=== PATIENT | male | born 1960 | race Caucasian/White ===

== ENCOUNTER 2016-06-13 12:00 | Inpatient (IN) | payer BC ==
[~2016-06-13] VITALS: Ht 174 cm; Wt 83.1 kg
[2016-06-14] MEDS ORDERED: VANCOMYCIN 1 GM in NS 250 ML IVPB SCH (06:00)
[2016-06-14] MEDS ORDERED: LACTATED RINGER'S 1,000 ML IV* SCH (06:00)
[2016-06-17 16:16] VITALS: BMI 28.5
[2016-06-20] VITALS (27 sets, daily range): BP systolic 96–122; BP diastolic 64–80; PULSE 56–101; RESP 5–19; Ht 174 cm; Wt 83.1 kg
[2016-06-20] MEDS ORDERED: ACETAMINOPHEN 1000 MG/100 ML IVPB ONE (07:00)
[2016-06-20] MEDS ORDERED: VANCOMYCIN 1 GM in NS 250 ML IVPB ONE (12:30)
[2016-06-20] MEDS ORDERED: LACTATED RINGER'S 1,000 ML IV* SCH (12:30)
--- NOTE | 2016-06-20 14:12 | HPN ---
Date/Time of Note Date/Time of Note DATE: 06/20/16 TIME: 14:11 Interval H&P Admission Note Pt. seen H&P reviewed: No system changes JAMISON CADENA PA-C Jun 20, 2016 14:12
[2016-06-20] MEDS ORDERED: HYDROmorphONE 1 MG/ML SYG IV PRN (14:30)
[2016-06-20] MEDS ORDERED: BISACODYL 10 MG SUPP PR PRN (14:30)
[2016-06-20] MEDS ORDERED: AL HYDROX/MG HYDROX/SIMETH 30 ML CUP PO PRN (14:30)
[2016-06-20] MEDS ORDERED: ONDANSETRON 4 MG INJ IV PRN ×2 (14:30→16:30)
[2016-06-20] MEDS ORDERED: HYDROmorphONE 0.2 MG/ML PCA IV SCH ×2 (14:30→23:45)
[2016-06-20] MEDS ORDERED: CYCLOBENZAPRINE 10 MG TAB PO PRN (14:30)
[2016-06-20] MEDS ORDERED: ACETAMINOPHEN 325 MG TAB PO PRN (14:30)
[2016-06-20] MEDS ORDERED: CEPASTAT LOZENGE MT PRN (14:30)
[2016-06-20] MEDS ORDERED: DIPHENHYDRAMINE 50 MG INJ IV PRN ×2 (14:30→16:30)
[2016-06-20] MEDS ORDERED: ZOLPIDEM 5 MG TAB PO PRN (14:30)
[2016-06-20] MEDS ORDERED: NALOXONE (0.4 MG/ML) INJ IV PRN (14:30)
[2016-06-20] MEDS ORDERED: PROPOFOL 100 ML ONE (14:35)
[2016-06-20] MEDS ORDERED: MIDAZOLAM 1 MG/ML 2 ML INJ ONE (14:35)
[2016-06-20] MEDS ORDERED: ROCURONIUM 50 MG INJ ONE (14:35)
[2016-06-20] MEDS ORDERED: SURGIFOAM POWDER 1 GM KIT ONE (14:45)
[2016-06-20] MEDS ORDERED: POLYMYXIN/BACITRACIN 1L IRRIG ONE (14:46)
[2016-06-20] MEDS ORDERED: CA CHLORIDE 10% 10 ML SYRINGE ONE (14:46)
[2016-06-20] MEDS ORDERED: BUPIVACAINE 0.25%/EPI (SDV) 30 ML INJ ONE (14:46)
[2016-06-20] MEDS ORDERED: THROMBIN 5000 UNIT VIAL ONE (14:46)
[2016-06-20] MEDS ORDERED: METOCLOPRAMIDE 10 MG INJ ONE (16:00)
[2016-06-20] MEDS ORDERED: DEXAMETHASONE 4 MG/ML 1 ML INJ ONE (16:00)
[2016-06-20] MEDS ORDERED: ONDANSETRON 4 MG INJ ONE (16:00)
[2016-06-20] MEDS ORDERED: EPHEDrine SULFATE 50 MG/5 ML SYG IV PRN (16:30)
[2016-06-20] MEDS ORDERED: HYDROmorphONE (0.2 MG/ML) 10ML SYG IV PRN ×2 (16:30)
[2016-06-20] MEDS ORDERED: METOCLOPRAMIDE 10 MG INJ IV PRN (16:30)
[2016-06-20] MEDS ORDERED: FENTAnyl 50 MCG/ML VIAL IV PRN ×3 (16:30)
[2016-06-20] MEDS ORDERED: MEPERIDINE 25 MG INJ IV PRN (16:30)
[2016-06-20] MEDS ORDERED: LABETALOL HCL 20MG INJ IV PRN (16:30)
[2016-06-20] MEDS ORDERED: morphine (1 MG/ML) 10ML SYRINGE IV PRN ×3 (16:30)
[2016-06-20] MEDS ORDERED: NEOSTIGMINE 3 MG/3 ML SYRINGE ONE (16:53)
[2016-06-20] MEDS ORDERED: GLYCOPYRROLATE 1 MG INJ ONE (16:53)
--- NOTE | 2016-06-20 17:32 | RADRPT ---
PROCEDURE: XR Lumbar Spine one view. CLINICAL INDICATION: Low back pain. Intraoperative. TECHNIQUE: Prone portable cross-table lateral. COMPARISON: No prior studies are available for comparison. FINDINGS: For the purposes of this report, the last apparent true disc level is considered to be L5-S1. Based on this, the posterior needle markers are present at upper L4 and mid S1. There has been prior pos terior fusion with pedicle screws at L5 and S1. IMPRESSION: 1. Intraoperative imaging as described above. RPTAT: QQ .Yang Loo MD, MD Date Time Electronically viewed and signed by .Yang Loo MD, on 06/20/2016 17:32 .R/
--- NOTE | 2016-06-20 17:33 | RADRPT ---
PROCEDURE: XR Lumbar Spine one view. CLINICAL INDICATION: Low back pain. Intraoperative. TECHNIQUE: Prone portable cross-table lateral. COMPARISON: 06/20/2016. FINDINGS: For the purposes of this report, the last apparent true disc level is considered to be L5-S1. Based on this, the posterior surgical instrument is at the L4-5 level. Pedicle screws are once again not ed at L5 and S1. IMPRESSION: 1. Intraoperative imaging as described above. RPTAT: QQ .Yang Loo MD, Date Time Electronically viewed and signed by .Yang Loo MD, on 06/20/2016 17:33 .R/
[2016-06-20] MEDS ORDERED: ACYC400T2 PO (17:39)
[2016-06-20] MEDS: HYDROmorphONE (0.2 MG/ML) 10ML SYG IV PRN ×3 (17:44→17:58)
--- NOTE | 2016-06-20 17:56 | OPR ---
DATE OF OPERATION: 06/20/2016 PREOPERATIVE DIAGNOSES: 1. 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 2. Previous L5-S1 decompression instrumented fusion x2. POSTOPERATIVE DIAGNOSES 1. 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 2. Previous L5-S1 decompression instrumented fusion x2. OPERATION PERFORMED: 1. Left L4-5 decompression with removal of extradural intraspinal cyst. 2. Use of operative microscope. 3. Lateral localizing film x2. 4. Intraoperative neuromonitoring (1.5 hours). PRIMARY SURGEON: Jose Carey MD MANAGER GROUP: My [employer] PA-C NEED FOR DRAW MACHINE OPERATOR: During this spinal surgical procedure, my sales and marketing assistant was used to retrac t and protect the spinal nerves and dural sac. My sales and marketing assistant also employed the suction catheters to evacuate blood from the surgical field to improve visualization of the neural structures. The judith tant was medically necessary to facilitate the completion of the surgery in a safe and expeditious vahe. [facility] [place] regulations, as well as hospital bylaws, preclude the use of non-license d health care personnel, such as operating room technicians, to perform these functions. FINDINGS: Neuromonitoring at the start of the case revealed left L4 amplitude down 40%, left L5 amp litude down 70%, left S1 amplitude down 50%, right L5 amplitude down 20%. At the end of the case, n erve signals returned to normal. The patient had a left-sided facet fracture from the previous surg eries. The patient had significant scar tissue and alteration of the field from the previous surger ies. ESTIMATED BLOOD LOSS: Less than 30 mL. DRAINS: None. SPECIMENS: Cyst was sent to Pathology. COMPLICATIONS OF PROCEDURES: None. ANESTHESIOLOGIST: Bradley Bowser MD TYPE OF ANESTHESIA: General. INDICATIONS FOR PROCEDURE: This is a 56-year-old gentleman with left lumbosacral radiculopathy in t he setting of stenosis and a cyst at L4-5. He had previously undergone L5-S1 decompression instrume nted fusion with removal of left-sided L5 and S1 screws. He failed nonoperative measures; therefore , I recommended proceeding with above-mentioned surgery. Preoperatively, we discussed the risks, be nefits, and alternatives. He understood and wished to proceed. DESCRIPTION OF PROCEDURE IN DETAIL: The patient was identified in the preoperative holding area, gi gudelia vancomycin antibiotics, taken to the operating room, where he was successfully placed under gene ral anesthesia. Neuromonitoring leads were placed, sequential compressive devices were applied. Ne uromonitoring was utilized during the procedure for 1.5 hours to include SSEP, MEP, and EMG. This w as performed by [email or web address]. Start time was 3:30 p.m., closure time was 5:00 p.m. The patient was placed in downward turned prone position over a Jimmy frame. All bony prominences were well p added. The back was then prepped and draped in usual sterile fashion. Spinal needles were placed a nd lateral localizing films obtained to confirm the correct levels. Once this was confirmed, I inje cted the paraspinal musculature with 0.25% Marcaine and epinephrine. I made an incision over the L4 -5 level utilizing a portion of the patient's previous incision. Incision was taken down to dorsal fascia, which was incised with Bovie cautery. Significant scar tissue was encountered from the prev ious surgery, altering the field and adding at least 30 minutes to the procedure. I was able to gissell ntify the left L4 lamina. Kerrison was placed under the L4 lamina and repeat lateral films obtained to confirm the correct levels. Once this was confirmed, microscope was brought in and a left-sided hemilaminotomy was performed. A portion of the patient's inferior L4 facet was fractured and remov ed. I used curettes to detach the cyst from the surrounding bone and did a laminotomy with a partia l medial facetectomy. Once this was done, I was able to identify the L5 nerve root. I then identif ied the cyst and I was able to peel the cyst off slowly off of the dura intact. Once this was remov ed, the patient nerve signals returned to normal. I cauterized any remnant cyst-like tissue. Once this was done, I irrigated the wound. Valsalva maneuver was performed and there was no leak of CSF. Anesthesiologist gillian peripheral blood was spun using the Sproutling device. I took the platelet-po or plasma and mixed this with thrombin and injected this over the dura for hemostatic purposes. I jadyn cowan removed the retractor and closed the deep fascia with #1 Vicryl stitch. I closed subcutaneous t issue with 2-0 Vicryl stitch. Microscope was taken off the field. A 4-0 Monocryl closure was then performed. Dermabond and sterile dressings were then applied. The patient was then awakened from a nesthesia and taken to recovery room in stable condition. Lap, sponge, and instrument counts were c orrect x2. There were no apparent complications during the procedure. The patient will be admitted to the orthopedic [facility] for routine postoperative care to include pain c ontrol, neurovascular checks, antibiotics, and physical therapy. Dictated By: JOSE BLACKWOOD/JARRET Conf#: [id number] DID#: [id number]
--- NOTE | 2016-06-20 18:08 | CONS ---
DATE OF ADMISSION: 06/20/2016 DATE OF CONSULTATION: 06/20/2016 Thank you very much for allowing me to evaluate this 56-year-old male who just underwent lumbar back surgery. HISTORICAL EVENTS: As you well know, this patient has had increasing low back pain last having seen him in April of this year. Because of increasing low back pain and left leg radicular pain, michelle g not responded to epidural and facet injections, it was thought that surgical intervention was appr opriate. In recovery, he notes mild nausea, mild epigastric pain without vomiting the absence of co ugh, wheezing, shortness of breath or chest pain. PAST MEDICAL HISTORY: Includes: 1. Testicular hypogonadism. 2. History of B12 deficiency. 3. Hypertriglyceridemia. 4. History of genital herpes. 5.. L5-S1 fusion and laminectomy. 6. Removal of scar tissue. 7. Cervical laminectomy in 2008 with removal of scar tissue L5-S1 in 2013. 8. Vasectomy 26 years ago. MEDICATIONS: 1. Meloxicam 7.5 b.i.d. 2. Acyclovir 400 b.i.d. 3. Testosterone injections twice weekly. 4. Vitamin B12 at 250 mg IM daily. 5. Fish oil 3600 mg per day. 6. Calcium. 7. Presently now taking Vitamin D3 at 3000 per day. SOCIAL HISTORY: He does drink wine, does not smoke. FAMILY HISTORY: Positive for coronary artery disease. ALLERGIES: INCLUDE PENICILLIN AND CLINDAMYCIN. PHYSICAL EXAMINATION: GENERAL: A middle-aged male in no acute distress. VITAL SIGNS: BP 120/80, pulse 70, respirations are 20. He was afebrile. EYES: Extraocular muscles were full. NOSE, MOUTH, AND THROAT: Normal. NECK: Supple. There was no jugular venous distention, thyroid enlargement or adenopathy. Carotids 2+. LUNGS: Clear. HEART: Rhythm regular, no murmur. No third or fourth sound. ABDOMEN: 1+ epigastric tenderness. Liver and spleen were not palpable. EXTREMITIES: No edema. Calves nontender. NEUROLOGIC: No lateralizing motor weakness. IMPRESSION: 1. Stable postop lumbar laminectomy. 2. Mild abdominal pain, probably secondary to gaseous distension. PLAN: Will evaluate for daily signs and symptoms of thromboembolic disease. Dictated By: MAXIMO MCGOVERN/JARRET Conf#: [id number] [facility]#: [id number]
[2016-06-20] MEDS: D5W-0.45 NACL + KCL 20 MEQ 1,000 ML IV SCH (21:14)
[2016-06-20] MEDS: DOCUSATE SODIUM 100 MG CAP PO SCH (21:15)
[2016-06-20] MEDS: VANCOMYCIN 1 GM (PMX) 250 ML IVPB SCH (21:15)
[2016-06-21] MEDS: D5W-0.45 NACL + KCL 20 MEQ 1,000 ML IV SCH ×2 (00:12→10:12)
[2016-06-21 02:36] LABS: ADD UMIC NO; URINE BILIRUBIN (Dip) NEGATIVE (NEGATIVE); URINE BLOOD (Dip) NEGATIVE (NEGATIVE); URINE COLOR LT. YELLOW (YELLOW); URINE GLUCOSE (Dip) NEGATIVE (NEGATIVE); URINE KETONES (Dip) NEGATIVE (NEGATIVE); URINE LEUKOCYTE ESTERASE (Dip) NEGATIVE (NEGATIVE); URINE NITRITE (Dip) NEGATIVE (NEGATIVE); URINE TOTAL PROTEIN (Dip) NEGATIVE (NEGATIVE); URINE UROBILINOGEN (Dip) 0.2 E.U./dL (0.1-1.0)
[2016-06-21 05:13] LABS: ADD SCAN DIFF NO
[2016-06-21 05:20] LABS: HEMATOCRIT 42.4 % (42.0-52.0); HEMOGLOBIN 14.6 g/dl (14.0-18.0); LYMPHOCYTES # 0.6 10^3/ul (0.8-2.9); LYMPHOCYTES % 4.8 % (15.0-51.0); MEAN CORPUSCULAR HEMOGLOBIN 29.2 pg (29.0-33.0); MEAN CORPUSCULAR HGB CONC 34.4 g/dl (32.0-37.0); MEAN CORPUSCULAR VOLUME 84.8 fl (82.0-101.0); MEAN PLATELET VOLUME 10.8 fl (7.4-10.4); MONOCYTE # 0.2 10^3/ul (0.3-0.9); MONOCYTES % 1.4 % (0.0-11.0); NEUTROPHIL # 12.1 10^3/ul (1.6-7.5); NEUTROPHILS % 93.4 % (39.0-77.0); PLATELET COUNT 222 10^3/UL (140-415); RED CELL DISTRIBUTION WIDTH 12.5 % (11.5-14.5)
[2016-06-21 05:35] LABS: POTASSIUM 4.4 mmol/L (3.5-5.1)
[2016-06-21 05:38] LABS: CREATININE 0.92 mg/dl (0.61-1.24)
[2016-06-21 05:39] LABS: CALCIUM 8.1 mg/dl (8.4-10.2); MAGNESIUM 1.6 mg/dl (1.7-2.5)
[2016-06-21] MEDS: VANCOMYCIN 1 GM (PMX) 250 ML IVPB SCH (05:57)
[2016-06-21 06:01] VITALS: BP 106/59; PULSE 99; RESP 18
[2016-06-21 07:55] VITALS: BP 107/64; RESP 18
--- NOTE | 2016-06-21 08:57 | CONS ---
Date/Time of Note Date/Time of Note DATE: 06/21/16 TIME: 08:55 Assessment/Plan Assessment/Plan Additional Assessment/Plan 1. Post op lumbar laminectomy, doing well 2. Bladder dysfx post op, will monitor residuals, Flomax ordered, u.a was nl 3. Sl low mag, will replete Consultation Date/Type/Reason Admit Date/Time Jun 20, 2016 at 11:34 Initial Consult Date Detailed Summary Respiratory: No shortness of breath Cardiovascular: No chest pain Gastrointestinal: no complaints Genitourinary: other (diff voiding without dysuria) Musculoskeletal: back pain (mild) Exam/Review of Systems Vital Signs Vitals Vital Signs Date Time Temp Pulse Resp B/P Pulse Ox O2 Delivery O2 Flow Rate FiO2 06/21/16 07:55 98.2 97 18 107/64 92 06/21/16 06:01 Nasal Cannula 06/20/16 23:45 2.0 Intake and Output 06/20/16 06/20/16 06/21/16 15:00 23:00 07:00 Intake Total 1000 ml 1550 ml Output Total 30 ml 600 ml Balance 1000 ml -30 ml 950 ml Exam Neck: No jvd Respiratory: clear to auscultation Cardiovascular: regular rate and rhythm Gastrointestinal: soft Extremities: No edema (and no calf tend) Results Result Diagram: 06/21/16 0445 06/21/16 0424 Results 24 hrs Laboratory Tests Test 06/21/16 01:50 06/21/16 04:24 06/21/16 04:45 Urine Bilirubin NEGATIVE Urine Clarity CLEAR Urine Color LT. YELLOW Urine Glucose NEGATIVE Urine Hemoglobin NEGATIVE Urine Ketones NEGATIVE Urine Leukocyte Esterase NEGATIVE Urine Nitrite NEGATIVE Urine Specific Lindsay 1.025 Urine Total Protein NEGATIVE Urine Urobilinogen 0.2 E.U./dL Urine pH 6.0 Anion Gap 16 Blood Urea Nitrogen 14 Calcium Level 8.1 L Carbon Dioxide Level 24 Chloride Level 103 Creatinine 0.92 Glucose Level 162 Magnesium Level 1.6 L Potassium Level 4.4 Sodium Level 139 Basophils # 0.0 Basophils % 0.0 Eosinophils # 0.0 Eosinophils % 0.0 Hematocrit 42.4 Hemoglobin 14.6 Lymphocytes # 0.6 L Lymphocytes % 4.8 L Mean Corpuscular Hemoglobin 29.2 Mean Corpuscular Hemoglobin Concent 34.4 Mean Corpuscular Volume 84.8 Mean Platelet Volume 10.8 H Monocytes # 0.2 L Monocytes % 1.4 Neutrophils # 12.1 H Neutrophils % 93.4 H Nucleated Red Blood Cells # 0.0 Nucleated Red Blood Cells % 0.0 Platelet Count 222 Red Blood Count 5.00 Red Cell Distribution Width 12.5 White Blood Count 13.0 H Medications Medications Current Medications Potassium Chloride/Dextrose/ Sod Cl (D5-1/2ns + KCl 20 Meq) 1,000 ml @ 100 mls/ hr Q10H IV Last administered on 06/20/16 21:14; Admin Dose 100 MLS/HR; Start 06/20/16 at 14:12 Acetaminophen/ Hydrocodone Bitart (Henrietta (10/325)) 1 tab Q4H PRN PO PAIN LEVEL 1-5; Start 06/21/16 at 10:00 Acetaminophen/ Hydrocodone Bitart (Henrietta (10/325)) 2 tab Q4H PRN PO PAIN LEVEL 6-10; Start 06/21/16 at 10:00 Hydromorphone HCl (Dilaudid) 0.2 mg Q1H PRN IV BREAKTHROUGH PAIN; Start at 14:30 Ondansetron HCl (Zofran Inj) 4 mg Q6H PRN IV NAUSEA AND/OR VOMITING Last administered on 06/20/16 17:42; Admin Dose 4 MG; Start 06/20/16 at 14:30 Bisacodyl (Dulcolax Supp) 10 mg DAILY PRN OR CONSTIPATION; Start 06/20/16 at 14 :30 Docusate Sodium (Colace) 100 mg BID PO Last administered on 06/20/16 21:15; Admin Dose 100 MG; Start 06/20/16 at 21:00 Al Hydrox/Mg Hydrox/Simethicone (Mag-Al Plus) 15 ml Q6H PRN PO CONSTIPATION/ DYSPEPSIA; Start 06/20/16 at 14:30 Acetaminophen (Tylenol Tab) 650 mg Q4H PRN PO CEDENO OR TEMP GREATER THAN 101.3F; Start 06/20/16 at 14:30 Cyclobenzaprine HCl (Flexeril) 10 mg TID PRN PO MUSCLE SPASMS; Start 06/20/16 at 14:30 Phenol (Cepastat Lozenge) 1 lozenge PRN PRN MT SORE THROAT; Start 06/20/16 at 14:30 Diphenhydramine HCl (Benadryl) 25 mg Q6H PRN IV ITCHING; Start 06/20/16 at 14: 30 Naloxone HCl (Narcan) 0.2 mg Q2M PRN IV RR 8 BREATHS/MIN OR LESS; Start at 14:30 Miscellaneous Information 1. Hold SALES PROJECT ENGINEER at 1,000... SALES PROJECT ENGINEER IV ; Start 06/20/16 at 14: 30; Stop 06/21/16 at 10:00 Acetaminophen/ Hydrocodone Bitart (Henrietta (10/325)) 2 tab ONCE PO ; Start at 09:30; Stop 06/21/16 at 11:11 Hydromorphone HCl (Dilaudid SALES PROJECT ENGINEER) SALES PROJECT ENGINEER to be started in PACU Q4PCA IV Last administered on 06/21/16t 02:26; Admin Dose 6 MG; Start 06/20/16 at 23:45; Stop 06/21/16 at 23:44 MAXIMO CAMACHO MD Jun 21, 2016 08:57
[2016-06-21] MEDS ORDERED: TAMSULOSIN (SR) 0.4 MG CAP PO ONE (09:00)
[2016-06-21] MEDS: DOCUSATE SODIUM 100 MG CAP PO SCH (09:03)
[2016-06-21] MEDS: HYDROCODONE/APAP (10/325) TAB PO PRN ×2 (09:04→11:18)
[2016-06-21] MEDS ORDERED: HYDROCODONE/APAP (10/325) TAB PO SCH (09:30)
[2016-06-21] MEDS ORDERED: MAGNESIUM SULFATE 3 GM in SOD CHLORIDE 0.9% 100 ML IVPB ONE (10:00)
[2016-06-21] MEDS ORDERED: HYDROCODONE/APAP (10/325) TAB PO PRN (10:00)
--- NOTE | 2016-06-21 15:44 | DS ---
DATE OF ADMISSION: 06/20/2016 DATE OF DISCHARGE: 06/21/2016 ADMITTING DIAGNOSIS: Lumbar stenosis. DISCHARGE DIAGNOSIS: Lumbar stenosis. PROCEDURE: The patient was taken to the operating room on 06/20/2016, underwent decompression with cyst removal. HOSPITAL COURSE: The patient was admitted to the orthopedic [facility] after undergoing the above procedu res. Postoperative course was uncomplicated. By postop day 1, he was deemed stable for discharge w ith followup arranged with the undersigned. Dictated By: EDITH BLACKWOOD/JARRET Conf#: [id number] DID#: [id number]
== END 2016-06-21 15:50 | disposition home or self-care (01) | DRG 30 ==
LOC: REC 06-20 11:34 → MS1 06-20 19:55
PROVIDERS: ADMIT Specialist; ATTEND Specialist
PROC: 0HB6XZZ Excision of Back Skin, External Approach (ICD-10-PCS; 2016-06-20)
PROC: 00NY0ZZ Release Lumbar Spinal Cord, Open Approach (ICD-10-PCS; principal; 2016-06-20 14:30)
DX: G96.19 Other disorders of meninges, not elsewhere classified (principal); L90.5 Scar conditions and fibrosis of skin; M48.06 Spinal stenosis, lumbar region; R10.13 Epigastric pain; R11.0 Nausea; Z98.1 Arthrodesis status
CPT/HCPCS: 72020; 80048; 81003; 83735; 85025; 86999; 87086; 97161; A4310; J0131; J1100; J1170; J2250; J2405; J2710; J2765; J3010; J3370; J3475; J3480